=== PATIENT | female | born 1990 | race Two or more races ===

== ENCOUNTER 2017-01-10 11:34 | Outpatient (CLI) | payer OTHER ==
[~2017-01-10] VITALS: Ht 170.2 cm; Wt 84.3 kg
[2017-01-10 11:53] VITALS: BP 111/58
[2017-01-10 16:58] LABS: CANDIDA DNA PROBE NEGATIVE; GARDNERELLA DNA PROBE POSITIVE; INTERNAL CONTROL VALID? YES
== END 2017-01-10 13:30 | disposition home or self-care (01) ==
LOC: LDRP-OP → 2WEST 11:35 → LDRP-OP 06-12 15:13
PROVIDERS: Advanced Practice Midwife
DX: O26.899 Other specified pregnancy related conditions, unspecified trimester (principal); R10.9 Unspecified abdominal pain; Z3A.00 Weeks of gestation of pregnancy not specified
CPT/HCPCS: 59025; 82731; 87086; 87480; 87510; 87660; G0378

== ENCOUNTER → 2017-02-26 | Outpatient (CLI) | payer OTHER ==
[~2017-02-26] VITALS: Ht 167.6 cm; Wt 85.0 kg
[2017-02-26 13:32] VITALS: BP 115/59
== END | disposition home or self-care (01) ==
LOC: IVINF 02-18 09:00
DX: Z31.82 Encounter for Rh incompatibility status (principal); Z3A.28 28 weeks gestation of pregnancy
CPT/HCPCS: 96372; J2790

== ENCOUNTER 2017-05-04 20:29 | Inpatient (IN) | payer OTHER ==
[~2017-05-04] VITALS: Ht 170.2 cm; Wt 94.5 kg
[2017-05-04 20:50] VITALS: BP 121/72
[2017-05-04 21:14] LABS: EOSINOPHIL (%) 1.2 % (0-5); EOSINOPHIL COUNT 0.1 K/uL (0-0.3); HEMATOCRIT 32.9 % (36.0-46.0); IMMATURE GRANULOCYTE (%) 0.3 % (0.0-0.7); INSTRUMENT ABS NEUTROPHIL CT 6.4 K/uL; LYMPHOCYTE COUNT 2.6 K/uL (1.0-2.8); MCH 28.6 PG (29.0-34.0); MCHC 32.8 G/DL (30.0-36.0); MCV 87.3 FL (83-99); MEAN PLAT.VOLUME 13.6 uM^3 (9.5-12.4); MONOCYTE (%) 5.9 % (3-12); MONOCYTE COUNT 0.6 K/uL (0-0.8); NEUTROPHIL (%) 65.7 % (45-76); NEUTROPHIL COUNT 6.4 K/uL (1.8-6.4); PLATELET COUNT 102 K/uL (156-360); RBC DIS.WIDTH-CV 13.7 % (11.8-14.6); RBC DIS.WIDTH-SD 43.1 % (39-53); RED BLOOD COUNT 3.77 M/uL (3.80-5.20); WHITE BLOOD COUNT 9.7 K/uL (4.1-10.2)
[2017-05-04 22:04] VITALS: BP 121/73
[2017-05-04 22:19] VITALS: BP 122/59
[2017-05-04 22:34] VITALS: BP 125/64
[2017-05-04 22:49] VITALS: BP 119/64
[2017-05-04 23:04] VITALS: BP 122/71
[2017-05-05 00:03] VITALS: BP 128/72
[2017-05-05 01:02] VITALS: BP 127/85
[2017-05-05 07:19] LABS: EOSINOPHIL (%) 0.5 % (0-5); EOSINOPHIL COUNT 0.1 K/uL (0-0.3); HEMATOCRIT 31.7 % (36.0-46.0); IMMATURE GRANULOCYTE (%) 0.3 % (0.0-0.7); INSTRUMENT ABS NEUTROPHIL CT 8.3 K/uL; LYMPHOCYTE COUNT 2.7 K/uL (1.0-2.8); MCH 28.4 PG (29.0-34.0); MCHC 32.5 G/DL (30.0-36.0); MCV 87.3 FL (83-99); MEAN PLAT.VOLUME 14.3 uM^3 (9.5-12.4); MONOCYTE (%) 6.9 % (3-12); MONOCYTE COUNT 0.8 K/uL (0-0.8); NEUTROPHIL (%) 69.6 % (45-76); NEUTROPHIL COUNT 8.3 K/uL (1.8-6.4); PLATELET COUNT 96 K/uL (156-360); RBC DIS.WIDTH-CV 13.8 % (11.8-14.6); RBC DIS.WIDTH-SD 43.6 % (39-53); RED BLOOD COUNT 3.63 M/uL (3.80-5.20); WHITE BLOOD COUNT 11.9 K/uL (4.1-10.2)
[2017-05-05 22:38] VITALS: BP 127/81
[2017-05-06 07:30] VITALS: BP 119/75
[2017-05-06] MEDS ORDERED: IBUPROFEN800 MG PO (11:48)
[2017-05-06 14:28] VITALS: BP 124/74
== END 2017-05-06 16:21 | disposition home or self-care (01) | DRG 775 ==
LOC: LDRP-OP 20:29 → 2WEST 20:32 → LDRP-OP 06-12 14:01
PROVIDERS: Advanced Practice Midwife
DX: O69.81X0 Labor and delivery complicated by cord around neck, without compression, not applicable or unspecified (principal); O99.334 Smoking (tobacco) complicating childbirth; F17.200 Nicotine dependence, unspecified, uncomplicated; Z3A.38 38 weeks gestation of pregnancy; Z37.0 Single live birth; Z83.0 Family history of human immunodeficiency virus [HIV] disease
CPT/HCPCS: 83030; 85025; 86850; 86870; 86900; 86901; J1050; J2790; J7120